=== PATIENT | female | born 1975 | race Caucasian/White ===

== ENCOUNTER 2020-04-10 23:25 | Emergency (ER) | payer OTHER ==
[~2020-04-10] VITALS: Ht 175.3 cm; Wt 107.0 kg
[2020-04-10 23:27] VITALS: BP 145/79
[2020-04-10] MEDS ORDERED: OXYcodone/APAP 5/325MG TABLET ONE (23:44)
[2020-04-10] MEDS ORDERED: PLEASE ENTER ALLERGIES MC SCH (23:45)
--- NOTE | 2020-04-10 23:49 | NUR ---
pt placed in gown and assisted to side laying position in bed, md in to assess and pt medicated as ordered. pt out via gurney with transporter to imaging, with no signs or symptoms of acute distress noted respirations even and unlabored.
[2020-04-11] MEDS ORDERED: OXYcodone/APAP 5/325MG TABLET PO ONE
--- NOTE | 2020-04-11 00:14 | NUR ---
pt back from imaging, states that she can feel the medicine starting to work but denies any significant changes in pain level. pt in bed with bed rails up bilaterally and daughter at bedside, call light within reach no signs or symptoms of acute distress noted respirations even and unlabored
--- NOTE | 2020-04-11 00:41 | NUR ---
pt in bed with daughter at bedside and side rails up bilaterally, call light within reach. pt reports pain is decreased to 5/10. no signs or symptoms of acute distress noted respirations even and unlabored
== END 2020-04-11 01:23 | disposition home or self-care (01) ==
LOC: ED 04-11 00:28
DX: S30.0XXA Contusion of lower back and pelvis, initial encounter (principal); G43.909 Migraine, unspecified, not intractable, without status migrainosus; W00.0XXA Fall on same level due to ice and snow, initial encounter; Y93.89 Activity, other specified; Y92.89 Other specified places as the place of occurrence of the external cause; Y99.8 Other external cause status
CPT/HCPCS: 72110; 72220; 99284